=== PATIENT | male | born 1980 ===

== ENCOUNTER 2020-04-19 21:02 | Outpatient (REF) | payer BC, SELFPAY ==
[2020-04-22 05:06] LABS: Patient Race White; SARS-CoV-2 RNA Undetected (Undetected); SARS-CoV-2 Specimen Source Nasal
== END 2020-04-19 21:22 ==
LOC: NCHCN 21:02
PROVIDERS: PCP Family Medicine; Visit Provider Family Medicine
DX: Z20.828 Contact with and (suspected) exposure to other viral communicable diseases (principal)
CPT/HCPCS: U0003

== ENCOUNTER 2021-07-19 17:16 | Outpatient (REF) | payer BC, SELFPAY ==
[2021-07-19 17:01] LABS: Calculated LDL 143 mg/dL (<100); Cholesterol 209 mg/dL (<200); Glucose 108 mg/dL (74-106); HDL Cholesterol 48 mg/dL (40-60); Triglyceride 91 mg/dL (<150)
== END 2021-07-19 17:17 | disposition home or self-care (01) ==
LOC: NCHCN 17:16
PROVIDERS: PCP Family Medicine; Visit Provider Family Medicine
DX: Z00.00 Encounter for general adult medical examination without abnormal findings (principal); Z13.1 Encounter for screening for diabetes mellitus; Z13.220 Encounter for screening for lipoid disorders
CPT/HCPCS: 80061; 82947